=== PATIENT | female | born 1970 | race Caucasian/White ===

== ENCOUNTER → 2019-04-02 | Day surgery (SDC) | payer MEDICARE, OTHER ==
[~2019-04-02] MED LIST: ALBU0.63 NEB; ALBU2.5V8 INH; AMLO5TAB10 PO; DESV50TA PO; FAMO-63 PO; FURO40TA4 PO; HYDR200T5 PO; HYOS0.1264 PO; INSU100V11 IJ; IV RINGERS,LACTATED 1000ML 1,000 ML IV SCH; LORA2TAB PO; NAPR220T70 PO; NORE1TAB27 PO; NORT25CA PO; NPH,100V5 SQ; OXYC20TA34 PO; POTA10TA12 PO; PROPOFOL 80 ML IV ONE; RISP3TAB23 PO; TIZA4TAB PO; VALS160T3 PO
[2019-04-02 10:47] VITALS: BP 184/88
--- NOTE | 2019-04-02 11:15 | PREOP HP ---
DATE OF SERVICE: 04/02/2019 REQUESTING PHYSICIAN: Paulo Randle M.D. PRIMARY CARE PHYSICIAN: Paulo Randle M.D. REASON FOR PROCEDURE: Gastroparesis, rectal bleeding and colorectal cancer screening. ALLERGIES: MAR was reviewed. MEDICATIONS: MAR was reviewed. HISTORY OF PRESENT ILLNESS: This is a 48-year-old female with a history of rectal bleeding as well as a family history of colon cancer. She also has a history of gastroparesis. PAST MEDICAL HISTORY: Gastroparesis and diabetes. FAMILY MEDICAL HISTORY: Colon cancer in her aunt. REVIEW OF SYSTEMS: A 13-point review of systems was done and is positive as per the HPI and otherwise negative. PHYSICAL EXAMINATION: VITAL SIGNS: She is febrile and tachycardic. GENERAL: She is an obese female, in no apparent distress. HEENT: Oropharynx is clear. CARDIOVASCULAR: S1, S2. LUNGS: Clear. ABDOMEN: Normoactive bowel sounds. Soft, nontender and nondistended. EXTREMITIES: She has had some edema and wounds on her lower extremities. NEUROLOGIC: Awake, alert and oriented x 3. 1. ASSESSMENT AND PLAN: 2. 1. Gastroparesis. Proceed with upper endoscopy for further evaluation. 3. 2. Rectal bleeding. 4. 3. Colon cancer screening. 5. 4. Family history of colon cancer. LYNDON BECKWITH MD DR: JOSEY/nts JOB#: [id number] / [id number]
--- NOTE | 2019-04-03 12:06 | PATHOLOGY ---
[facility] Accession Number: [id number] . 01 Material submitted: . PART A: duodenum - 2ND PORTION DUODENUM. Modifiers: second PART B: duodenum bulb - DUODENAL BULB PART C: stomach - GASTRIC ANTRUM PART D: esophagus - DISTAL ESOPHAGUS. Modifiers: distal PART E: ileum - TERMINAL ILEUM PART F: colon - RIGHT COLON. Modifiers: right PART G: colon - LEFT COLON. Modifiers: left . 01 Clinical history: . Pre-OP DX: Gastroparesis, GI bleed, diarrhea Post-OP DX: Rule out celiac . 02 Diagnosis: A. Duodenum "second portion of duodenum", biopsy: - No obvious diagnostic changes. - There is no evidence of acute cryptitis, granulomas, adenomatous change, sprue-like changes or malignancy. . B. Duodenum "duodenum bulb", biopsy: - No obvious diagnostic changes. - There is no evidence of acute cryptitis, granulomas, adenomatous change, sprue-like changes or malignancy. . C. Gastric biopsy "gastric antrum biopsy": - Mild chronic reactive gastropathy. - The immunoperoxidase stain for Helicobacter pylori is negative. . D. Glandular gastric type mucosa "distal esophagus biopsy": - Mild chronic reactive gastropathy. - There is no evidence of goblet cell metaplasia, dysplasia or malignancy. - Squamous mucosa is not present for evaluation. . E. Small intestinal mucosa "terminal ileum biopsy": - No diagnostic changes. - There is no evidence of an acute cryptitis, granulomas, adenomatous change or malignancy. . F. Colonic mucosa "right colon biopsy": - No diagnostic changes. - There is no evidence of acute cryptitis, granulomas, adenomatous change or malignancy. - There are no changes of microscopic colitis. . G. Colonic mucosa, left colon biopsy: - No diagnostic changes. - There is no evidence of acute cryptitis, granulomas, adenomatous change, changes of microscopic colitis or malignancy. (SHA:pit; 04/03/2019) QTP/04/03/2019 . 02 Electronically signed: . Bronson Gan MD, Pathologist NPI- [id number] . 01 Gross description: . A. Received in formalin labeled "Lockhart, Karolina, duodenum 2nd portion," are 5 segments of hummel soft tissue measuring 1.4 x 1.1 x 0.2 cm in aggregate dimensions and ranging from 0.2 to 0.4 cm in maximum dimension. The specimen is submitted entirely in cassette A1. . B. Received in formalin labeled "Lockhart, Karolina, duodenal bulb," are 2 segments of hummel soft tissue measuring 0.9 x 0.3 x 0.2 cm in aggregate dimensions and ranging from 0.4 to 0.5 cm in maximum dimension. The specimen is submitted entirely in cassette B1. . C. Received in formalin labeled "Lockhart, Karolina, gastric antrum," is a single segment of hummel soft tissue measuring 0.4 cm in maximum dimension. The specimen is entirely submitted in cassette C1. . D. Received in formalin labeled "Lockhart, Karolina, distal esophagus," are 2 segments of hummel soft tissue measuring 1.0 x 0.3 x 0.3 cm in aggregate dimensions and measuring 0.5 cm each in maximum dimension. The specimen is submitted entirely in cassette D1. . E. Received in formalin labeled "Lockhart, Karolina, terminal ileum," are 2 segments of hummel soft tissue measuring 1.0 x 0.2 x 0.2 cm in aggregate dimensions and ranging from 0.3 to 0.7 cm in maximum dimension. The specimen is submitted entirely in cassette E1. . F. Received in formalin labeled "Lockhart, Karolina, right colon," are 5 segments of hummel soft tissue measuring 1.5 x 0.9 x 0.2 cm in aggregate dimensions and ranging from 0.3 to 0.6 cm in maximum dimension. The specimen is submitted entirely in cassette F1. . G. Received in formalin labeled "Lockhart, Karolina, left colon," are 7 segments of hummel soft tissue measuring 1.9 x 1.6 x 0.2 cm in aggregate dimensions and ranging from 0.3 to 0.5 cm in maximum dimension. The specimen is submitted entirely in cassette G1. (TSD; 04/02/2019) TOB/TOB . 02 Pathologist provided ICD-10: K31.9, K92.2, R19.7 . 02 CPT . 800159, 822554, 988689, [id number], [id number], [id number], [id number], [id number] Specimen Comment: A courtesy copy of this report has been sent to Specimen Comment: [phone], . Specimen Comment: Report sent to / DR BULLOCK Performed at: 01 [facility] [address], [place] [id number] MD Suhail Patterson MD Phone: [phone] Performed at: 02 [facility] [address] [place], [place] [id number] MD Mian Flores MD Phone: [phone]
== END ==
LOC: ENDOS 08:16
PROVIDERS: ATTEND Internal Medicine Gastroenterology
DX: K29.50 Unspecified chronic gastritis without bleeding (principal); K21.0 Gastro-esophageal reflux disease with esophagitis; K31.84 Gastroparesis; K57.30 Diverticulosis of large intestine without perforation or abscess without bleeding; K64.0 First degree hemorrhoids; E11.9 Type 2 diabetes mellitus without complications; Z80.0 Family history of malignant neoplasm of digestive organs; Z79.84 Long term (current) use of oral hypoglycemic drugs
CPT/HCPCS: 43239; 45380; 81025; J2704; 88305; 88342